=== PATIENT | female | born 1950 | race Caucasian/White ===

== ENCOUNTER 2017-06-26 14:17 | Outpatient (CLI) | payer OTHER | END 2017-06-26 16:40 | disposition home or self-care (01) | LOC: DCC 14:17 | DX: I10 Essential (primary) hypertension (principal); E78.5 Hyperlipidemia, unspecified; E03.9 Hypothyroidism, unspecified | CPT/HCPCS: G0463 ==

== ENCOUNTER 2017-07-13 14:38 | Outpatient (CLI) | payer OTHER | END 2017-07-13 16:51 | disposition home or self-care (01) | LOC: DCC 14:38 | DX: I10 Essential (primary) hypertension (principal); E03.9 Hypothyroidism, unspecified; E78.5 Hyperlipidemia, unspecified; M06.9 Rheumatoid arthritis, unspecified; Z79.82 Long term (current) use of aspirin | CPT/HCPCS: G0463 ==

== ENCOUNTER 2017-12-10 11:41 | Day surgery (SDC) | payer OTHER ==
[2017-12-10] MEDS ORDERED: LIDOCAINE 2% (SDV) 5 ML INJ (13:46)
[2017-12-10] MEDS ORDERED: PROPOFOL 60 ML (13:46)
== END 2017-12-10 16:56 | disposition home or self-care (01) ==
LOC: GIL 11:41
DX: R19.4 Change in bowel habit (principal); K62.1 Rectal polyp; K64.8 Other hemorrhoids; K21.9 Gastro-esophageal reflux disease without esophagitis; K29.60 Other gastritis without bleeding; E03.9 Hypothyroidism, unspecified; E78.5 Hyperlipidemia, unspecified; E66.9 Obesity, unspecified; Z68.35 Body mass index [BMI] 35.0-35.9, adult; I10 Essential (primary) hypertension
CPT/HCPCS: 43239; 88305; 88312

== ENCOUNTER → 2018-01-22 | Outpatient (CLI) | payer OTHER ==
[2018-01-22 13:27] LABS: ALANINE AMINOTRANSFERASE 17 IU/L (13-69); ALBUMIN 4.4 g/dl (3.3-4.9); ALBUMIN/GLOBULIN RATIO 1.46; ALKALINE PHOSPHATASE 92 IU/L (42-121); ANION GAP 14 (8-16); ASPARTATE AMINO TRANSFERASE 34 IU/L (15-46); BILIRUBIN,INDIRECT 0.4 mg/dl (0-1.1); BILIRUBIN,TOTAL 0.4 mg/dl (0.2-1.3); BLOOD UREA NITROGEN 27 mg/dl (7-20); CALCIUM 9.8 mg/dl (8.4-10.2); CARBON DIOXIDE 26 mmol/L (21-31); CHLORIDE 105 mmol/L (97-110); CREATININE 0.85 mg/dl (0.44-1.00); GLUCOSE 147 mg/dl (70-220); POTASSIUM 4.2 mmol/L (3.5-5.1); SODIUM 141 mmol/L (135-144); TOTAL PROTEIN 7.4 g/dl (6.1-8.1)
[2018-01-22] MEDS: IOHEXOL 100 ML (13:46)
[2018-01-22] MEDS: IOHEXOL 300MG/ML 150 ML BTL (13:46)
[2018-01-22] MEDS: SOD CHLORIDE 0.9% 100 ML ×2 (13:46)
[2018-01-22] MEDS: NITROGLYCERIN AEROSOL (4.9 GM) (15:13)
== END | disposition home or self-care (01) ==
LOC: LAB 12:43
DX: Z01.818 Encounter for other preprocedural examination (principal)
CPT/HCPCS: 75574; 80053

== ENCOUNTER 2018-01-27 09:30 | Day surgery (SDC) | payer OTHER ==
[2018-01-27 10:58] LABS: ADD MAN DIFF? NO
[2018-01-27 11:03] LABS: BASOPHILS % 0.8 % (0.0-2.0); EOSINOPHILS # 0.1 10^3/ul (0.0-0.5); EOSINOPHILS % 2.1 % (0.0-7.0); HEMATOCRIT 35.6 % (37.0-47.0); HEMOGLOBIN 11.9 g/dl (12.0-16.0); LYMPHOCYTES % 18.9 % (15.0-51.0); MEAN CORPUSCULAR HEMOGLOBIN 29.6 pg (29.0-33.0); MEAN CORPUSCULAR HGB CONC 33.4 g/dl (32.0-37.0); MEAN CORPUSCULAR VOLUME 88.6 fl (82.0-101.0); MEAN PLATELET VOLUME 11.1 fl (7.4-10.4); MONOCYTE # 0.4 10^3/ul (0.3-0.9); MONOCYTES % 7.8 % (0.0-11.0); NEUTROPHIL # 3.7 10^3/ul (1.6-7.5); PLATELET COUNT 234 10^3/UL (140-415); RED BLOOD COUNT 4.02 10^6/ul (4.20-5.40); RED CELL DISTRIBUTION WIDTH 13.2 % (11.5-14.5)
[2018-01-27 11:03] LABS: WHITE BLOOD COUNT 5.3 10^3/ul (4.8-10.8)
[2018-01-27 11:22] LABS: ANION GAP 11 (8-16); CALCIUM 9.8 mg/dl (8.4-10.2); CARBON DIOXIDE 27 mmol/L (21-31); CHLORIDE 105 mmol/L (97-110); CHOL/HDL RATIO 3.3 RATIO; CHOLESTEROL 179 mg/dl (100-200); CREATININE 0.73 mg/dl (0.44-1.00); GLUCOSE 119 mg/dl (70-220); HDL CHOLESTEROL 54 mg/dl (35-98); LDL CHOLESTEROL,CALCULATED 104 mg/dl; POTASSIUM 4.3 mmol/L (3.5-5.1); SODIUM 139 mmol/L (135-144); TRIGLYCERIDES 107 mg/dl (0-149)
[2018-01-27 11:25] LABS: BLOOD UREA NITROGEN 32 mg/dl (7-20)
[2018-01-27] MEDS: SOD CHLORIDE 0.45% 1,000 ML IV (11:29)
[2018-01-27] MEDS ORDERED: DIPHENHYDRAMINE 50 MG CAP PO (11:30)
[2018-01-27] MEDS ORDERED: DIAZEPAM 5 MG TAB PO (11:30)
[2018-01-27] MEDS ORDERED: FAMOTIDINE 20 MG TAB PO (11:30)
[2018-01-27 11:47] LABS: INR 0.88; PT RATIO 0.9
[2018-01-27 11:48] LABS: PARTIAL THROMBOPLASTIN TIME 27.4 Sec (25.0-35.0)
[2018-01-27] MEDS ORDERED: FENTAnyl 50 MCG/ML VIAL (14:05)
[2018-01-27] MEDS ORDERED: LIDOCAINE 1% (MDV) 10 ML INJ (14:05)
[2018-01-27] MEDS ORDERED: HEPARIN 1000 UNITS/ML 10 ML INJ (14:05)
[2018-01-27] MEDS ORDERED: MIDAZOLAM 1 MG/ML 2 ML INJ (14:05)
[2018-01-27] MEDS ORDERED: NITROGLYCERIN (IC) 100 MCG/ML INJ (14:14)
[2018-01-27] MEDS ORDERED: VERAPAMIL 5 MG INJ (14:14)
[2018-01-27] MEDS ORDERED: IODIXANOL LOCM 100 ML BTL (14:52)
[2018-01-27] MEDS ORDERED: ACETAMINOPHEN 325 MG TAB PO (15:30)
[2018-01-27] MEDS ORDERED: morphine 2 MG INJ IV (15:30)
[2018-01-27] MEDS ORDERED: AL HYDROX/MG HYDROX/SIMETH 30 ML CUP PO (15:30)
[2018-01-27] MEDS ORDERED: ONDANSETRON 4 MG INJ IV (15:30)
[2018-01-27] MEDS: SOD CHLORIDE 0.9% 1,000 ML IV (15:56)
== END 2018-01-27 20:10 | disposition home or self-care (01) ==
LOC: SDS 09:30
DX: I10 Essential (primary) hypertension (principal); E78.00 Pure hypercholesterolemia, unspecified; R94.31 Abnormal electrocardiogram [ECG] [EKG]; I34.0 Nonrheumatic mitral (valve) insufficiency
CPT/HCPCS: 80048; 80061; 85025; 85610; 85730; 93005; 93458